=== PATIENT | male | born 1970 | race Caucasian/White ===

== ENCOUNTER 2016-09-07 13:15 | Emergency (ER) | payer OTHER ==
--- NOTE | 2016-09-07 15:37 | ED NURSING NOTES ---
Clinical Report - Nurses [facility] [address] [place] [address] 09/07/2016 13:16 Patient: TENZIN ANN TRIAGE Triage time 13:50 Sep 07 2016. Acuity: LEVEL 4. Chief Complaint: SWELLING OF JAW / FACE and (pt reports he began having facial swelling on Monday, today he woke with increase in swelling that now includes his neck and up to his right ear, denies fever/chills, denies difficutly swallowing, speaks full, clear sentences. masked in triage). Alert. No acute distress. SEPSIS SCREEN: Sepsis Screen: negative. Infection suspected/documented. --13:56 Jak Maloney R.N. 13:50 09/07/16. BP: 126/85. HR: 88. RR: 17. O2 saturation: 98%. Temp: 98.5 F. Pain level now: 04/26. --13:56 Jak Maloney R.N. Weight: 113.3 kg stated. Height/Length: 72 inches Per Patient. BMI: 33.9. --13:56 Jak Maloney R.N. Medications Hydrochlorothiazide Oral 15mg, daily. --13:54 Jak Maloney R.N. Medication/allergy information source: the patient. --13:56 Jak Maloney R.N. Allergies Codeine. ("stops my heart") --13:54 Jak Maloney R.N. History Arrived by private vehicle. Historian: patient. Reports enlarged lymph nodes. He has had swelling of the face and swelling of the jaw. 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 SOCIAL HX: Never smoker. No alcohol use or drug use. No infectious disease exposure. ABUSE ASSESSMENT: No report of abuse. SELF HARM ASSESSMENT: A self harm assessment was performed. The patient answered "no" to the question "Do you have thoughts of harming or killing yourself?". FALL RISK ASSESSMENT: Fall risk assessment completed. No fall risk identified. NUTRITIONAL RISK ASSESSMENT: The nutritional risk assessment revealed no deficiencies. FUNCTIONAL ASSESSMENT: Functional assessment: no impairments noted. LEARNING NEEDS ASSESSMENT: The learning needs assessment revealed no barriers. SKIN INTEGRITY ASSESSMENT: Skin integrity risk assessment completed. No skin integrity risk identified. --13:56 Jak Maloney RRadha PROBLEMS: Hypertension. --13:54 Jak Maloney R.N. ADDITIONAL SURGERIES: no known surgeries. Interventions ID and allergy band on patient. --13:56 Jak Maloney R.Mary. PHYSICAL ASSESSMENT Ambulatory to room. GENERAL / NEURO / PSYCH: Alert. Oriented X 4. Appears in no acute distress. HEENT: Pupils equal, round and reactive to light. Pharynx within normal limits. Voice within normal limits. Mouth within normal limits upon inspection. Mucous membranes are pink. RESPIRATORY: Respirations not labored. CVS: Capillary refill less than 2 seconds. SKIN: Skin is warm and dry. Normal skin turgor. --15:45 Richa Workamn. DISPOSITION / DISCHARGE Departure time: 1545. Condition at departure: unchanged and stable. No learning barriers present. Discharge instructions provided and reviewed with the patient. Reviewed medication(s). Work note given. Patient verbalized understanding. Written instructions provided in Lithuanian. The patient was discharged by the nurse practitioner. He was discharged home and unaccompanied at time of discharge. He left the Emergency Department ambulatory and via private vehicle. Patient driving. --15:45 Richa Workman. Locked/Released at 09/07/2016 15:46 by Richa Workman,
--- NOTE | 2016-09-07 15:37 | ED CLINICAL REPORT ---
Clinical Report - Physicians/Mid Levels [facility] [address] [place] [address] 09/07/2016 13:16 Patient: TENZIN ANN Time Seen: 15:01. Arrived- By private vehicle. Historian- patient. HISTORY OF PRESENT ILLNESS Chief Complaint: FEVER. swollen cheeks/glands. This started 4 days ago (Sun) and is still present. The illness is described as mild. No cough, sputum production, difficulty breathing, chills or sore throat. No hoarseness, nasal congestion or ear pain. He has had fever (for 1 days). (Pt's mom concerned re possible mumps. Pt has been playing w/ his grandkids prior to onset of sx). Additional history - No known contact with a sick individual. No recent travel. Similar symptoms previously: None. Recent medical care: Not recently seen/assessed. REVIEW OF SYSTEMS No headache, nausea, vomiting, diarrhea or skin rash. He has had enlarged lymph nodes. PAST HISTORY See nurses notes. Mild hypertension. No history of diabetes mellitus. Additional Surgeries: no known surgeries. Medications: Hydrochlorothiazide Oral 15mg, daily. Allergies: Codeine. ("stops my heart"). SOCIAL HISTORY Never smoker. No alcohol use or drug use. ADDITIONAL NOTES The nursing notes have been reviewed. PHYSICAL EXAM Vital Signs: 09/07/2016 13:50 BP: 126/85. HR: 88. RR: 17. O2 saturation: 98%. Temp: 98.5 F. Pain level now: 10. Have been reviewed and appear to be correct. Appearance: Alert. No acute distress. Eyes: Pupils equal, round and reactive to light. Eyes normal inspection. ENT: Ears normal. Nose normal. No pharyngeal erythema, muffled or hoarse voice or voice, trismus or trouble handling secretions. Neck: Mild right anterior neck, mild right submandibular and mild right preauricular and mild left anterior neck and mild left submandibular lymphadenopathy present (Bilateral moderate parotid gland, saliv gland swelling). Neck supple. No meningeal signs. CVS: Normal heart rate and rhythm. Heart sounds normal. Respiratory: No respiratory distress. Breath sounds normal. Skin: Skin warm and dry. Normal skin color. No rash. Normal skin turgor. Extremities: Extremities exhibit normal ROM. Neuro: Oriented X 3. LABS, X-RAYS, AND EKG Laboratory Tests: Laboratory tests have been ordered, with results reviewed and considered in the medical decision making process. Mumps [facility] after consult chad/ Maddie in infectious disease. Buccal and urine samples. . PROGRESS AND PROCEDURES Course of Care: Spoke w/ Carolyn. Instructed to obtain buccal and urine samples and send to [facility] lab. Pt agrees to stay home until Monday in general and to RTW next week. Fair suspicion for possible mumps-but will also cover w/ Augmentin. Patient is stable. Disposition: Discharged. Condition: stable. CLINICAL IMPRESSION Parotitis. No mumps with orchitis, hepatitis, pancreatitis, arthritis or meningitis. No mumps with encephalitis. INSTRUCTIONS Rest. Do not work for one week (May return on MondaySeptember 122016). Drink plenty of fluids. (Confine yourself to home til Monday-may return to work on Monday. You will be contacted by the [facility] dept re your results. I am going to give you an antibiotic to start to cover the possibility of bacterial, non-mumps, infection.). Warnings: GENERAL WARNINGS: Return or contact your physician immediately if your condition worsens or changes unexpectedly, if not improving as expected, or if other problems arise. Prescription Medications: Augmentin 875 mg: take 1 tablet orally every 12 hours for 7 days. No refill. Understanding of the discharge instructions verbalized by patient. (Electronically signed by Kenna Willson A.R.N.P. 09/07/2016 16:50)
--- NOTE | 2016-09-07 15:37 | ED NURSING NOTES ---
Clinical Report - Nurses [facility] [address] [place] [address] 09/07/2016 13:16 Patient: TENZIN ANN TRIAGE Triage time 13:50 Sep 07 2016. Acuity: LEVEL 4. Chief Complaint: SWELLING OF JAW / FACE and (pt reports he began having facial swelling on Monday, today he woke with increase in swelling that now includes his neck and up to his right ear, denies fever/chills, denies difficutly swallowing, speaks full, clear sentences. masked in triage). Alert. No acute distress. SEPSIS SCREEN: Sepsis Screen: negative. Infection suspected/documented. --13:56 Jak Maloney R.N. 13:50 09/07/16. BP: 126/85. HR: 88. RR: 17. O2 saturation: 98%. Temp: 98.5 F. Pain level now: 04/26. --13:56 Jak Maloney R.N. Weight: 113.3 kg stated. Height/Length: 72 inches Per Patient. BMI: 33.9. --13:56 Jak Maloney R.N. Medications Hydrochlorothiazide Oral 15mg, daily. --13:54 Jak Maloney R.N. Medication/allergy information source: the patient. --13:56 Jak Maloney R.N. Allergies Codeine. ("stops my heart") --13:54 Jak Maloney R.N. History Arrived by private vehicle. Historian: patient. Reports enlarged lymph nodes. He has had swelling of the face and swelling of the jaw. 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 SOCIAL HX: Never smoker. No alcohol use or drug use. No infectious disease exposure. ABUSE ASSESSMENT: No report of abuse. SELF HARM ASSESSMENT: A self harm assessment was performed. The patient answered "no" to the question "Do you have thoughts of harming or killing yourself?". FALL RISK ASSESSMENT: Fall risk assessment completed. No fall risk identified. NUTRITIONAL RISK ASSESSMENT: The nutritional risk assessment revealed no deficiencies. FUNCTIONAL ASSESSMENT: Functional assessment: no impairments noted. LEARNING NEEDS ASSESSMENT: The learning needs assessment revealed no barriers. SKIN INTEGRITY ASSESSMENT: Skin integrity risk assessment completed. No skin integrity risk identified. --13:56 Jak Maloney RRadha PROBLEMS: Hypertension. --13:54 Jak Maloney R.N. ADDITIONAL SURGERIES: no known surgeries. Interventions ID and allergy band on patient. --13:56 Jak Maloney R.Mary. PHYSICAL ASSESSMENT Ambulatory to room. GENERAL / NEURO / PSYCH: Alert. Oriented X 4. Appears in no acute distress. HEENT: Pupils equal, round and reactive to light. Pharynx within normal limits. Voice within normal limits. Mouth within normal limits upon inspection. Mucous membranes are pink. RESPIRATORY: Respirations not labored. CVS: Capillary refill less than 2 seconds. SKIN: Skin is warm and dry. Normal skin turgor. --15:45 Richa Workman. DISPOSITION / DISCHARGE Departure time: 1545. Condition at departure: unchanged and stable. No learning barriers present. Discharge instructions provided and reviewed with the patient. Reviewed medication(s). Work note given. Patient verbalized understanding. Written instructions provided in Polish. The patient was discharged by the nurse practitioner. He was discharged home and unaccompanied at time of discharge. He left the Emergency Department ambulatory and via private vehicle. Patient driving. --15:45 Richa Workman. Locked/Released at 09/07/2016 15:46 by Richa Workman,
--- NOTE | 2016-09-07 15:37 | ED CLINICAL REPORT ---
Clinical Report - Physicians/Mid Levels [facility] [address] [place] [address] 09/07/2016 13:16 Patient: TENZIN ANN Time Seen: 15:01. Arrived- By private vehicle. Historian- patient. HISTORY OF PRESENT ILLNESS Chief Complaint: FEVER. swollen cheeks/glands. This started 4 days ago (Sun) and is still present. The illness is described as mild. No cough, sputum production, difficulty breathing, chills or sore throat. No hoarseness, nasal congestion or ear pain. He has had fever (for 1 days). (Pt's mom concerned re possible mumps. Pt has been playing w/ his grandkids prior to onset of sx). Additional history - No known contact with a sick individual. No recent travel. Similar symptoms previously: None. Recent medical care: Not recently seen/assessed. REVIEW OF SYSTEMS No headache, nausea, vomiting, diarrhea or skin rash. He has had enlarged lymph nodes. PAST HISTORY See nurses notes. Mild hypertension. No history of diabetes mellitus. Additional Surgeries: no known surgeries. Medications: Hydrochlorothiazide Oral 15mg, daily. Allergies: Codeine. ("stops my heart"). SOCIAL HISTORY Never smoker. No alcohol use or drug use. ADDITIONAL NOTES The nursing notes have been reviewed. PHYSICAL EXAM Vital Signs: 09/07/2016 13:50 BP: 126/85. HR: 88. RR: 17. O2 saturation: 98%. Temp: 98.5 F. Pain level now: 10. Have been reviewed and appear to be correct. Appearance: Alert. No acute distress. Eyes: Pupils equal, round and reactive to light. Eyes normal inspection. ENT: Ears normal. Nose normal. No pharyngeal erythema, muffled or hoarse voice or voice, trismus or trouble handling secretions. Neck: Mild right anterior neck, mild right submandibular and mild right preauricular and mild left anterior neck and mild left submandibular lymphadenopathy present (Bilateral moderate parotid gland, saliv gland swelling). Neck supple. No meningeal signs. CVS: Normal heart rate and rhythm. Heart sounds normal. Respiratory: No respiratory distress. Breath sounds normal. Skin: Skin warm and dry. Normal skin color. No rash. Normal skin turgor. Extremities: Extremities exhibit normal ROM. Neuro: Oriented X 3. LABS, X-RAYS, AND EKG Laboratory Tests: Laboratory tests have been ordered, with results reviewed and considered in the medical decision making process. Mumps PCR sent to state lab after consult chad/ Maddie in infectious disease. Buccal and urine samples. . PROGRESS AND PROCEDURES Course of Care: Spoke w/ Carolyn. Instructed to obtain buccal and [facility]. Pt agrees to stay home until Monday in general and to RTW next week. Fair suspicion for possible mumps-but will also cover w/ Augmentin. Patient is stable. Disposition: Discharged. Condition: stable. CLINICAL IMPRESSION Parotitis. No mumps with orchitis, hepatitis, pancreatitis, arthritis or meningitis. No mumps with encephalitis. INSTRUCTIONS Rest. Do not work for one week (May return on MondaySeptember 122016). Drink plenty of fluids. (Confine yourself to home til Monday-may return to work on Monday. You will be contacted by the [facility] dept re your results. I am going to give you an antibiotic to start to cover the possibility of bacterial, non-mumps, infection.). Warnings: GENERAL WARNINGS: Return or contact your physician immediately if your condition worsens or changes unexpectedly, if not improving as expected, or if other problems arise. Prescription Medications: Augmentin 875 mg: take 1 tablet orally every 12 hours for 7 days. No refill. Understanding of the discharge instructions verbalized by patient. (Electronically signed by Kenna Willson A.R.N.P. 09/07/2016 16:50)
--- NOTE | 2016-09-07 15:37 | ED ORDER SUMMARY ---
..... Patient: TENZIN ANN OrderSheet [facility] VisitID: [id number] [address] [place] [address] 46y, M Registration Date/Time: 09/07/2016 ORDER SHEET Weight: 113.3 kg (stated) Allergies: Codeine GENERAL ORDERS: - (Labs to [facility] Dept: Mumps PCR by urine and buccal swab) (15:20 09/07/2016 Za A.R.N.P.) ([facility] MEDICATION ORDERS: IV FLUIDS: ORDER SHEET NOTES: [Electronically signed by Richa Workman (15:46 09/07/2016)] [Electronically signed by Kenna Willson.R.N.P. (16:50 09/07/2016)] [Electronically locked/signed by Richa Workman (15:46 09/07/2016)]
--- NOTE | 2016-09-07 15:37 | ED ORDER SUMMARY ---
..... Patient: TENZIN ANN OrderSheet [facility] VisitID: [id number] [address] [place] [address] 46y, M Registration Date/Time: 09/07/2016 ORDER SHEET Weight: 113.3 kg (stated) Allergies: Codeine GENERAL ORDERS: - (Labs to [facility] Dept: Mumps PCR by urine and buccal swab) (15:20 09/07/2016 Za A.R.N.P.) ([facility] MEDICATION ORDERS: IV FLUIDS: ORDER SHEET NOTES: [Electronically signed by Richa Workman (15:46 09/07/2016)] [Electronically signed by Kenna Willson.R.N.P. (16:50 09/07/2016)] [Electronically locked/signed by Richa Workman (15:46 09/07/2016)]
--- NOTE | 2016-09-07 16:50 | ED MAR SUMMARY ---
..... Medication Administration Record [facility] [address] [place], [place] [id number] Patient: TENZIN ANN Visit ID: [id number] 46y, M Weight: 113.3 kg Height/Length: 72 in BMI: 33.9 ALLERGIES: Codeine
--- NOTE | 2016-09-07 16:50 | ED DISCHARGE INSTRUCTIONS ---
Patient: TENZIN ANN General Instructions [facility] VisitID: [id number] [address] [place] [address] 46y, M Registration Date/Time: 09/07/2016 Parotitis. No mumps with orchitis, hepatitis, pancreatitis, arthritis or meningitis. No mumps with encephalitis. INSTRUCTIONS Rest. Do not work for one week (May return on MondaySeptember 122016). Drink plenty of fluids. (Confine yourself to home til Monday-may return to work on Monday. You will be contacted by the [facility] dept re your results. I am going to give you an antibiotic to start to cover the possibility of bacterial, non-mumps, infection.). Warnings: GENERAL WARNINGS: Return or contact your physician immediately if your condition worsens or changes unexpectedly, if not improving as expected, or if other problems arise. Prescription Medications: Augmentin 875 mg: take 1 tablet orally every 12 hours for 7 days. No refill. Understanding of the discharge instructions verbalized by patient. ADDITIONAL INFORMATION Salivary Gland Infection Salivary glands make saliva in response to food in your mouth. Saliva is mostly water, but also has minerals and proteins that help break down food and keep the mouth and teeth healthy. There are three pairs of salivary glands: Parotid glands (in front of the ear) Submandibular glands (below the jaw) Sublingual glands (below the tongue) Each gland has a duct (channel) that allows saliva to flow from the gland into the mouth. The salivary gland can become infected as a result of the salivary duct being blocked. This blockage may be due to a stone, narrowing of the duct, or poor salivary flow due to dehydration. Chronic illness or certain medications can also increase the risk of infection. A blocked salivary gland is at risk of infection. This causes severe pain in the gland with redness in the skin over the gland. The gland is tender to the touch and there may be fever. Symptoms are worse during eating since food stimulates the flow of saliva. Even the smell or thought of food can cause symptoms to appear. Diagnosis of a salivary gland blockage with infection requires an X-ray, CT-scan, ultrasound or injection of dye into the salivary duct. If a stone is discovered, it may be removed by massage of the duct, or a procedure to remove the stone manually. Antibiotics are used to treat the infection. Sometimes it is necessary to drain the infection with a small surgical procedure. Home Care: Drink 6-8 glasses of fluid per day (water, juices, tea, soup, etc.) to keep well-hydrated. If you smoke, quit smoking. Maintain good dental hygiene: [place] your teeth, floss, and use mouthwash. If it is determined that no stone is present, but you have gland swelling during meals, there may be sludge blocking the duct, or the duct may be narrowed. Gently massaging the gland and sucking on lemon drops after a meal may help reduce the symptoms. Take antibiotics as directed until you have finished them all, even if you are feeling better after only a few days. Follow Up with your doctor or as advised by our staff. Get Prompt Medical Attention if any of the following occur: Increasing pain or swelling in the gland Fever over 100.5F (38.0C) that persists after two days of antibiotics Increasing redness over the gland You have been given the following additional information: Salivary Gland Infection Rest. Do not work for one week (May return on MondaySeptember 122016). (Electronically signed by Kenna Willson A.R.N.P. 09/07/2016 16:50)
--- NOTE | 2016-09-07 16:50 | ED MAR SUMMARY ---
..... Medication Administration Record [facility] [address], [place] [id number] Patient: TENZIN ANN Visit ID: [id number] 46y, M Weight: 113.3 kg Height/Length: 72 in BMI: 33.9 ALLERGIES: Codeine
--- NOTE | 2016-09-07 16:50 | ED MED RECONCILIATION SUMMARY ---
Patient: TENZIN ANN Medication Reconciliation Report [facility] VisitID: [id number] [address] [place] [address] 46y, M Registration Date/Time: 09/07/2016 Weight: 113.3 kg Height/Length: 72 in. BMI: 33.9 ALLERGIES: Codeine The patient's Home Medications are listed below: THE FOLLOWING MEDICATIONS NEED TO BE RECONCILED: Hydrochlorothiazide Oral 15mg, daily The source(s) of the original Home Medication information: patient The following Medications were given to the patient in the Emergency Department: None. The following Medications were prescribed to the patient: Augmentin 875 mg: take 1 tablet orally every 12 hours for 7 days. No refill. -- Kenna Willson A.R.N.P.
--- NOTE | 2016-09-07 16:50 | ED MED RECONCILIATION SUMMARY ---
Patient: TENZIN ANN Medication Reconciliation Report [facility] VisitID: [id number] [address] [place] [address] 46y, M Registration Date/Time: 09/07/2016 Weight: 113.3 kg Height/Length: 72 in. BMI: 33.9 ALLERGIES: Codeine The patient's Home Medications are listed below: THE FOLLOWING MEDICATIONS NEED TO BE RECONCILED: Hydrochlorothiazide Oral 15mg, daily The source(s) of the original Home Medication information: patient The following Medications were given to the patient in the Emergency Department: None. The following Medications were prescribed to the patient: Augmentin 875 mg: take 1 tablet orally every 12 hours for 7 days. No refill. -- Kenna Willson A.R.N.P.
--- NOTE | 2016-09-07 16:50 | ED DISCHARGE INSTRUCTIONS ---
Patient: TENZIN ANN General Instructions [facility] VisitID: [id number] [address] [place] [address] 46y, M Registration Date/Time: 09/07/2016 Parotitis. No mumps with orchitis, hepatitis, pancreatitis, arthritis or meningitis. No mumps with encephalitis. INSTRUCTIONS Rest. Do not work for one week (May return on MondaySeptember 122016). Drink plenty of fluids. (Confine yourself to home til Monday-may return to work on Monday. You will be contacted by the [facility] dept re your results. I am going to give you an antibiotic to start to cover the possibility of bacterial, non-mumps, infection.). Warnings: GENERAL WARNINGS: Return or contact your physician immediately if your condition worsens or changes unexpectedly, if not improving as expected, or if other problems arise. Prescription Medications: Augmentin 875 mg: take 1 tablet orally every 12 hours for 7 days. No refill. Understanding of the discharge instructions verbalized by patient. ADDITIONAL INFORMATION Salivary Gland Infection Salivary glands make saliva in response to food in your mouth. Saliva is mostly water, but also has minerals and proteins that help break down food and keep the mouth and teeth healthy. There are three pairs of salivary glands: Parotid glands (in front of the ear) Submandibular glands (below the jaw) Sublingual glands (below the tongue) Each gland has a duct (channel) that allows saliva to flow from the gland into the mouth. The salivary gland can become infected as a result of the salivary duct being blocked. This blockage may be due to a stone, narrowing of the duct, or poor salivary flow due to dehydration. Chronic illness or certain medications can also increase the risk of infection. A blocked salivary gland is at risk of infection. This causes severe pain in the gland with redness in the skin over the gland. The gland is tender to the touch and there may be fever. Symptoms are worse during eating since food stimulates the flow of saliva. Even the smell or thought of food can cause symptoms to appear. Diagnosis of a salivary gland blockage with infection requires an X-ray, CT-scan, ultrasound or injection of dye into the salivary duct. If a stone is discovered, it may be removed by massage of the duct, or a procedure to remove the stone manually. Antibiotics are used to treat the infection. Sometimes it is necessary to drain the infection with a small surgical procedure. Home Care: Drink 6-8 glasses of fluid per day (water, juices, tea, soup, etc.) to keep well-hydrated. If you smoke, quit smoking. Maintain good dental hygiene: Purvis your teeth, floss, and use mouthwash. If it is determined that no stone is present, but you have gland swelling during meals, there may be sludge blocking the duct, or the duct may be narrowed. Gently massaging the gland and sucking on lemon drops after a meal may help reduce the symptoms. Take antibiotics as directed until you have finished them all, even if you are feeling better after only a few days. Follow Up with your doctor or as advised by our staff. Get Prompt Medical Attention if any of the following occur: Increasing pain or swelling in the gland Fever over 100.5F (38.0C) that persists after two days of antibiotics Increasing redness over the gland You have been given the following additional information: Salivary Gland Infection Rest. Do not work for one week (May return on MondaySeptember 122016). (Electronically signed by Kenna Willson A.R.N.P. 09/07/2016 16:50)
== END 2016-09-07 15:45 | disposition home or self-care (01) ==
LOC: ED SRH 13:15
DX: B26.9 Mumps without complication (principal); K11.20 Sialoadenitis, unspecified